=== PATIENT | female | born 1975 | race Two or more races ===

== ENCOUNTER 2017-03-16 22:01 | Emergency (ER) | payer BC ==
[~2017-03-16] VITALS: Ht 165.1 cm; Wt 104.3 kg
[2017-03-16 23:11] LABS: Basophils # (auto) 0 uL; Basophils % (auto) 0.3 % (0.0-2.0); Eosinophils # (auto) 0.2 uL; Eosinophils % (auto) 2.8 % (0.0-7.0); Hematocrit 38.7 % (36.0-46.0); Lymphocytes # (auto) 1.4 uL; Lymphocytes % (auto) 19.7 % (10.0-50.0); Mean Corpuscular Hemoglobin 29.6 pg (28.0-32.0); Mean Corpuscular Hgb Conc. 33.5 g/dL (32.0-36.0); Mean Corpuscular Volume 88.3 fL (80.0-100.0); Mean Platelet Volume 8.6 fL (6.9-10.8); Monocytes # (auto) 0.8 uL; Monocytes % (auto) 11.6 % (0.0-12.0); Neutrophils # (auto) 4.6 uL; Neutrophils % (auto) 65.6 % (37.0-80.0); Platelet Count (auto) 220 10^3/uL (140-450); Red Cell Distribution Width 14.1 % (11.8-14.3)
[2017-03-16 23:28] LABS: Albumin 3.7 g/dL (3.4-5.0); BUN/Creatinine Ratio 14.1; Calcium 9.2 mg/dL (8.5-10.1); Potassium 3.9 mmol/L (3.5-5.1)
[2017-03-16 23:31] LABS: Bilirubin, Total 0.2 mg/dL (0.2-1.0); Total Protein 7.8 g/dL (6.4-8.2)
[2017-03-17 08:37] VITALS: BP 123/82
[2017-03-17] MEDS ORDERED: ASPirin 325 MG TAB PO ONE (08:45)
== END 2017-03-17 09:36 | disposition home or self-care (01) ==
LOC: ER 22:01
DX: R07.89 Other chest pain (principal); B19.9 Unspecified viral hepatitis without hepatic coma; E11.9 Type 2 diabetes mellitus without complications; L93.0 Discoid lupus erythematosus
CPT/HCPCS: 36415; 71020; 80053; 84484; 85025